=== PATIENT | male | born 1975 | race African-American/Black ===

== ENCOUNTER 2019-04-24 14:03 | Emergency (ER) | payer MEDICARE ==
[~2019-04-24] VITALS: Ht 175.3 cm; Wt 82.1 kg
[2019-04-24 14:32] VITALS: BP 153/93
== END 2019-04-24 15:22 | disposition home or self-care (01) ==
LOC: ER 14:03
DX: F25.9 Schizoaffective disorder, unspecified (principal); Z76.0 Encounter for issue of repeat prescription

== ENCOUNTER 2021-12-18 20:06 | Emergency (ER) | payer MEDICARE, OTHER ==
[~2021-12-18] VITALS: Ht 175.3 cm; Wt 81.6 kg
[2021-12-18 23:03] VITALS: BP 140/74
== END 2021-12-18 23:17 | disposition home or self-care (01) ==
LOC: ER 20:26
DX: R05.9 Cough, unspecified (principal); R52 Pain, unspecified; R06.7 Sneezing; Z20.822 Contact with and (suspected) exposure to COVID-19; F25.9 Schizoaffective disorder, unspecified
CPT/HCPCS: 71045; 87426; 99284; C9803

== ENCOUNTER 2022-07-10 01:53 | Inpatient (IN) | payer OTHER ==
[~2022-07-10] VITALS: Ht 172.7 cm; Wt 73.9 kg
--- NOTE | 2022-07-10 02:35 | NUR ---
JOSE MANUEL FROM HOME C/O VOMITING STARTED THIS MORNING WITH ABD PAIN. PT A/OX4. TOLERATING R/A WELL WITH NO RESP DISTRESS. CONNECTED PT TO POX AND MONITOR. SAFETY MEASURES IN PLACE.
--- NOTE | 2022-07-10 02:44 | NUR ---
DR. DEIDRE ORTEZ AT PT'S BEDSIDE FOR EVAL
[2022-07-10] MEDS ORDERED: DICYCLOMINE HCL INJ 20 MG/2 ML AMPUL IM ONE ×2 (02:50→03:00)
[2022-07-10] MEDS ORDERED: ONDANSETRON HCL/PF 4 MG/2 ML VIAL ONE (02:51)
[2022-07-10] MEDS ORDERED: LORAZEPAM INJ 2 MG/ML VIAL ONE ×2 (02:56→07:26)
--- NOTE | 2022-07-10 02:59 | NUR ---
IV LINE ESTABLISHED, RFA20G. BLOOD COLLECTED AND SENT TO LAB
[2022-07-10] MEDS ORDERED: LORAZEPAM INJ 2 MG/ML VIAL IV ONE (03:00)
[2022-07-10] MEDS ORDERED: IV NS 0.9% 1,000 ML BAG IV ONE (03:00)
[2022-07-10] MEDS ORDERED: ONDANSETRON HCL/PF 4 MG/2 ML VIAL IVP ONE (03:00)
--- NOTE | 2022-07-10 03:10 | NUR ---
PT NOT ABLE TO URINATE AT THIS TIME. OFFERED PT URINAL & WILL F/U WITH URINE SAMPLE.
[2022-07-10 03:12] LABS: BASOPHILS % (AUTO) 0.1 % (0.0-2.0); EOSINOPHILS % (AUTO) 0.1 % (0.0-6.0); HEMATOCRIT 53 % (39-51); HEMOGLOBIN 17.7 g/dL (13.5-17.5); LYMPHOCYTES # (AUTO) 0.6 K/uL (0.8-4.8); LYMPHOCYTES % (AUTO) 3.5 % (20.0-44.0); MEAN CORPUSCULAR HGB CONC 34 g/dl (31.0-36.0); MEAN CORPUSCULAR VOLUME 88 fL (80-96); MONOCYTES # (AUTO) 0.7 K/uL (0.1-1.30); MONOCYTES % (AUTO) 4.1 % (2.0-12.0); NEUTROPHILS # (AUTO) 15.1 K/uL (1.8-8.9); NEUTROPHILS % (AUTO) 92.2 % (43.0-81.0); PLATELET COUNT (AUTO) 265 K/uL (150-450); RED BLOOD CELL COUNT(AUTO) 5.99 MIL/uL (4.5-6.0); WHITE BLOOD COUNT (AUTO) 16.4 K/uL (4.3-11.0)
[2022-07-10 03:26] LABS: CALCIUM, SERUM 9.5 mg/dL (8.5-10.1); POTASSIUM 3.7 mmol/L (3.5-5.1)
--- NOTE | 2022-07-10 03:26 | NUR ---
COVID ANTIGEN SWAB COLLECTED AND SENT TO LAB
--- NOTE | 2022-07-10 03:31 | NUR ---
PT TAKEN TO CT VIA YISSEL
[2022-07-10 03:32] LABS: ALBUMIN 4.4 g/dL (3.4-5.0); BILIRUBIN,DIRECT 0.1 mg/dL (0.0-0.2); BILIRUBIN,TOTAL 0.5 mg/dL (0.2-1.0); TOTAL PROTEIN, SERUM 8.9 g/dL (6.4-8.2)
[2022-07-10] MEDS ORDERED: LIDOCAINE 2% JEL UROJET 10 ML MM ONE (04:11)
--- NOTE | 2022-07-10 04:19 | NUR ---
URINE COLLECTED AND SENT TO LAB
[2022-07-10] MEDS ORDERED: MORPHINE SULFATE INJ 4 MG/ML DISP.SYRIN ONE (04:34)
--- NOTE | 2022-07-10 04:55 | NUR ---
DR. JIANG DO ON PHONECALL WITH DR. FOWLER RADIOLOGIST MD
[2022-07-10 04:59] LABS: BILIRUBIN,URINE NEGATIVE (NEGATIVE); COLOR,URINE YELLOW (YELLOW); LEUKOCYTE ESTERASE ,URINE NEGATIVE (NEGATIVE); NITRITE, URINE NEGATIVE (NEGATIVE); PH,URINE 7.5 (5.0-8.0); PROTEIN,URINE 30 mg/dl (NEGATIVE); UGLUCOSE NEGATIVE (NEGATIVE); UROBILINOGEN,URINE 0.2 EU/dL (0.2)
[2022-07-10] MEDS ORDERED: LIDOCAINE VISCOUS 2% UD 15 ML UDC ONE (04:59)
[2022-07-10] MEDS ORDERED: MORPHINE SULFATE INJ 2 MG/ML DISP.SYRIN IV ONE ×2 (05:00→20:00)
--- NOTE | 2022-07-10 05:10 | NUR ---
DR JIANG ON THE PHONE WITH DR SHAH, GEN SURG
--- NOTE | 2022-07-10 05:15 | NUR ---
NGT 14 INSERTED TO R NARE AT 60CM. CONFIRMED PLACEMENT VIA AUSCULTATION AND ASPIRATION. CLEAR GI CONTENT NOTED.
--- NOTE | 2022-07-10 05:22 | NUR ---
MATERIAL CLERK FOR NGT PLACEMENT AND PT'S BEDSIDE
[2022-07-10] MEDS ORDERED: IV NS 0.9% 1,000 ML IV PRN (05:30)
[2022-07-10] MEDS ORDERED: Z GUARD REMEDY 4 OZ OINT TP PRN (05:30)
--- NOTE | 2022-07-10 05:38 | NUR ---
BED ASSIGNMENT: 116-2 AFTER SHIFT CHANGE
[2022-07-10] MEDS ORDERED: LITH300T PO (06:03)
[2022-07-10] MEDS ORDERED: QUET400T PO (06:03)
[2022-07-10] MEDS ORDERED: AMLO-213 PO (06:03)
--- NOTE | 2022-07-10 06:16 | NUR ---
R NARE NGT CONNECTED TO LOW INTERMITTENT SUCTION. PT TOLERATING WELL.
[2022-07-10] MEDS: LORAZEPAM INJ 2 MG/ML VIAL IV PRN ×4 (07:31→18:47)
--- NOTE | 2022-07-10 07:35 | NUR ---
ativan order given iv, waste with rn supervisor evaporator valerie 1mg given 1 mg wasted, tolerated well iv is patent flushing intact RFA
--- NOTE | 2022-07-10 07:42 | NUR ---
REPORT GIVEN TO [facility] ROOM 116-2, ATIVAN EFFECTIVE, STILL C/O N/V AT THIS TIME, SITTING UP 90% ANGLE FOR COMFORT
[2022-07-10] MEDS: ONDANSETRON HCL/PF 4 MG/2 ML VIAL IVP PRN ×3 (08:51→18:47)
[2022-07-10] MEDS: MORPHINE SULFATE INJ 4 MG/ML DISP.SYRIN IV PRN ×3 (08:51→17:32)
--- NOTE | 2022-07-10 09:30 | NUR ---
RN NOTE RIGHT NARE NGT CONNECTED TO LOW INTERMITTENT SUCTION. PATIENT TOLERATING WELL.
[2022-07-10 11:00] LABS: HEMATOCRIT 54 % (39-51); LYMPHOCYTES # (AUTO) 0.6 K/uL (0.8-4.8); LYMPHOCYTES % (AUTO) 2.7 % (20.0-44.0); MEAN CORPUSCULAR HGB CONC 33 g/dl (31.0-36.0); MEAN CORPUSCULAR VOLUME 88 fL (80-96); MONOCYTES # (AUTO) 1.9 K/uL (0.1-1.30); MONOCYTES % (AUTO) 8.5 % (2.0-12.0); NEUTROPHILS # (AUTO) 20.1 K/uL (1.8-8.9); NEUTROPHILS % (AUTO) 88.8 % (43.0-81.0); PLATELET COUNT (AUTO) 286 K/uL (150-450); RED BLOOD CELL COUNT(AUTO) 6.14 MIL/uL (4.5-6.0); WHITE BLOOD COUNT (AUTO) 22.7 K/uL (4.3-11.0)
[2022-07-10] MEDS: LITHIUM CARBONATE (300 MG CAP) 300 MG CAPSULE PO SCH (17:00)
[2022-07-10] MEDS: NICOTINE PATCH (14MG) 14 MG PATCH.TD24 TD SCH (17:32)
--- NOTE | 2022-07-10 17:37 | NUR ---
patient signed consent ,[facility] surgery notified will schedule for paulypt. aware.primary rn aware.continue npo.
[2022-07-10] MEDS ORDERED: LIDOCAINE 1% INJ 50 ML MDV IJ ONE (19:52)
[2022-07-10] MEDS ORDERED: BUPIVACAINE MPF 0.5% W/EPI INJ 30 ML VIAL ONE (19:52)
--- NOTE | 2022-07-10 20:00 | NUR ---
RN NOTE PATIENT TAKEN TO SURGERY ON 2ND FLOOR, CHART, CHECK LIST AND CONSENTS GIVEN TO RN. PATIENT'S VSS AT TIME OF TRANSPORT.
[2022-07-10] MEDS ORDERED: FENTANYL PF 250MCG/5ML AMPUL ONE (20:13)
[2022-07-10] MEDS ORDERED: MIDAZOLAM HCL 2 MG/2ML VIAL ONE (20:14)
[2022-07-10] MEDS ORDERED: HYDROMORPHONE INJ 2 MG/ML DISP.SYRIN ONE (20:14)
[2022-07-10] MEDS ORDERED: ROCURONIUM BROMIDE 50 MG/5 ML ONE (20:15)
[2022-07-10] MEDS ORDERED: FAMOTIDINE/PF INJ 20 MG/2 ML VIAL IV ONE (20:15)
[2022-07-10] MEDS ORDERED: SEVOFLURANE 250 ML BOTTLE IH ONE (21:45)
[2022-07-10] MEDS: QUETIAPINE FUMARATE 100 MG TABLET PO SCH (22:00)
[2022-07-11] MEDS ORDERED: MIDAZOLAM HCL 2 MG/2ML VIAL ONE ×2 (00:07→00:12)
--- NOTE | 2022-07-11 00:30 | NUR ---
0030 Patient back from surgery via bed, report given by OR nurse to ELMER Thomas at bedside. Patient very drowsy, opens eyes briefly and immediately tries to get out of bed. Received with bilateral soft wrist restraints from OR for safety as per report patient was also trying to get out of bed during recovery. Leon catheter intact and patent with moderate amount of baron urine. Incision sites on abdomen noted with small amount of bleeding, steri strips intact. NGT in place and connected to low intermittent suction. Vital signs checked and recorded. Repositioned for comfort. Call light placed within reach. Restraints order obtained from WILBERT [place]. Will cont. to monitor patient.
[2022-07-11] MEDS: ONDANSETRON HCL/PF 4 MG/2 ML VIAL IVP PRN ×3 (02:03→15:06)
[2022-07-11] MEDS: MORPHINE SULFATE INJ 4 MG/ML DISP.SYRIN IV PRN ×5 (02:03→22:35)
[2022-07-11] MEDS: LORAZEPAM INJ 2 MG/ML VIAL IV PRN ×4 (02:03→21:48)
[2022-07-11 06:42] LABS: BASOPHILS # (AUTO) 0.1 K/uL (0.0-0.2); BASOPHILS % (AUTO) 0.4 % (0.0-2.0); EOSINOPHILS % (AUTO) 0.2 % (0.0-6.0); HEMATOCRIT 49 % (39-51); HEMOGLOBIN 16.2 g/dL (13.5-17.5); LYMPHOCYTES # (AUTO) 0.3 K/uL (0.8-4.8); LYMPHOCYTES % (AUTO) 2.2 % (20.0-44.0); MEAN CORPUSCULAR HGB CONC 33 g/dl (31.0-36.0); MEAN CORPUSCULAR VOLUME 90 fL (80-96); MONOCYTES # (AUTO) 0.7 K/uL (0.1-1.30); MONOCYTES % (AUTO) 5.1 % (2.0-12.0); NEUTROPHILS # (AUTO) 13.2 K/uL (1.8-8.9); NEUTROPHILS % (AUTO) 92.1 % (43.0-81.0); PLATELET COUNT (AUTO) 216 K/uL (150-450); RED BLOOD CELL COUNT(AUTO) 5.43 MIL/uL (4.5-6.0); WHITE BLOOD COUNT (AUTO) 14.3 K/uL (4.3-11.0)
--- NOTE | 2022-07-11 06:59 | NUR ---
all care endorsed to day shift nurse, patient stable.
--- NOTE | 2022-07-11 07:01 | NUR ---
all care endorsed to day shift nurse, patient stable.
[2022-07-11 07:12] LABS: CALCIUM, SERUM 7.6 mg/dL (8.5-10.1); CREATININE 1.5 mg/dL (0.6-1.3); PHOSPHORUS 3.2 mg/dL (2.5-4.9); POTASSIUM 3.8 mmol/L (3.5-5.1)
--- NOTE | 2022-07-11 07:30 | NUR ---
RN OPENING NOTES RECEIVED PT A0X4. ON RA AT 100%. PT ON TELE MONITOR SR. PT S/P SURGERY LAST NIGHT FOR SMALL BOWEL OBSTRUCTION. PT REMAINS ON NPO STATUS, WAITING ON CLEARANCE FROM SURGEON. PT HAS REEVES CATHETER INTACT, DRAINING WELL VIA GRAVITY. STERI STRIPS ON LEFT ABDOMEN INTACT, NO BLEEDING NOTED. NGT CONNECTED TO LOW INTERMITTENT SUCTION ON R NARES. IV ACCESS ON RFA #20 RUNNING AT 75 MLS/HR, FLUSHED AND PATENT, NO INFILTRATION NOTED. ALL SAFETY MEASURES IN PLACE. BED IN LOWEST POSITION, LOCKED AND BED ALARM ACTIVATED. WILL CONTINUE MONITOR THROUGHOUT SHIFT.
[2022-07-11 08:00] VITALS: BP 140/53
[2022-07-11] MEDS: LITHIUM CARBONATE (300 MG CAP) 300 MG CAPSULE PO SCH ×2 (08:13→17:00)
[2022-07-11] MEDS: NICOTINE PATCH (14MG) 14 MG PATCH.TD24 TD SCH (08:13)
[2022-07-11] MEDS: AMLODIPINE BESYLATE 10 MG TABLET PO SCH (08:15)
--- NOTE | 2022-07-11 11:16 | NUR ---
RN NOTE NOTIFIED DR RODARTE OF RECENT LAB RESULTS. WITH ORDER TO INCREASE NS IVF TO 125 MLS/HR. ORDERS CARRIED OUT.
[2022-07-11 16:00] VITALS: BP 155/108
[2022-07-11] MEDS: IV NS 0.9% 1,000 ML IV PRN (16:37)
--- NOTE | 2022-07-11 18:15 | NUR ---
RN NOTE PATIENT SEEN BY CHANDRAKANT COMBS EDUCATIONAL THERAPIST, S/P SMALL BOWEL OBSTRUCTION SURGERY. PER CHANDRAKANT OK TO ADVANCE DIET TO CLEAR LIQUID DIET. NOTED AND CARRIED OUT.
--- NOTE | 2022-07-11 18:58 | NUR ---
RN CLOSING NOTES NO SIGNIFICANT CHANGES ON PATIENT CONDITION THROUGHOUT SHIFT. PATIENT AWAKE, ALERT/ORIENTED X 3-4 WITH GIRLFRIEND AT BEDSIDE. ON RA AT 100%. BREATHING UNLABORED. NO SOB OR ANY ACUTE DISTRESS NOTED. PT S/P SURGERY LAST NIGHT FOR SMALL BOWEL OBSTRUCTION, DIET NOW ON CLEAR LIQUIDS. PT HAS REEVES CATHETER INTACT, DRAINING WELL VIA GRAVITY. NGT ON R NARES, CURRENTLY CLAMPED. IV ACCESS ON RFA #20 INFUSING NS AT 125 MLS/HR, FLUSHED AND PATENT, NO INFILTRATION NOTED. ALL NEEDS ANTICIPATED. KEPT PATIENT CLEAN DRY AND COMFORTABLE. ALL SAFETY MEASURES IN PLACE. BED IN LOWEST POSITION, LOCKED AND BED ALARM ACTIVATED. WILL ENDORSE TO CHARTING CLERK NURSE FOR CONTINUITY OF CARE.
--- NOTE | 2022-07-11 19:40 | NUR ---
PT RECEIVED A0X4. ON RA, OS SAT AT 98%. PT ON TELE MONITOR SR. PT S/P SURGERY LAST NIGHT FOR SMALL BOWEL OBSTRUCTION. PT REMAINS ON CLEAR LIQUID DIET, PT HAS REEVES CATHETER INTACT, DRAINING WELL VIA GRAVITY. STERI STRIPS ON LEFT ABDOMEN INTACT, NO BLEEDING NOTED. NGT CONNECTED TO LOW INTERMITTENT SUCTION ON R NARES, CURRENTLY CLAMPED TOLERATED. IV ACCESS ON RFA #20 PATENT AND INFUSING NS AT 125 ML/HR, NO INFILTRATION NOTED. ALL SAFETY MEASURES IN PLACE. BED IN LOWEST POSITION, LOCKED AND BED ALARM ACTIVATED. WILL CONTINUE PLAN OF CARE.
[2022-07-11] MEDS: QUETIAPINE FUMARATE 100 MG TABLET PO SCH (21:02)
[2022-07-11] MEDS ORDERED: IV NS 0.9% 500 ML IV ONE (22:30)
[2022-07-11] MEDS ORDERED: ACETAMINOPHEN 650 MG/20.3 ML UDC PO PRN (22:30)
[2022-07-12] VITALS: BP 119/60
--- NOTE | 2022-07-12 00:06 | NUR ---
PT HR [id number] ON TELE MONITOR ON 07/11 AT 10PM. RELAYED TO MD. PRN MEDS GIVEN ORDERED. 500ML NS BOLUS GIVEN ORDERED. CLAMPED NGT PULLED OUT BY PT. RESTRAINTS IN PLACE ORDERED. PT TOLERATING CLEAR LIQUID DIET. NO ORDER FOR NGT REINSERTION AT THIS TIME. WILL CONTINUE PLAN OF CARE AND ANTICIPATE PT NEEDS.
[2022-07-12] MEDS: IV NS 0.9% 1,000 ML IV PRN ×3 (02:21→22:35)
[2022-07-12] MEDS: MORPHINE SULFATE INJ 4 MG/ML DISP.SYRIN IV PRN ×4 (04:15→18:23)
[2022-07-12] MEDS: LORAZEPAM INJ 2 MG/ML VIAL IV PRN (04:44)
[2022-07-12 06:20] LABS: BASOPHILS % (AUTO) 0.3 % (0.0-2.0); EOSINOPHILS % (AUTO) 0.4 % (0.0-6.0); HEMATOCRIT 45 % (39-51); HEMOGLOBIN 14.5 g/dL (13.5-17.5); LYMPHOCYTES # (AUTO) 0.7 K/uL (0.8-4.8); LYMPHOCYTES % (AUTO) 8.5 % (20.0-44.0); MEAN CORPUSCULAR HGB CONC 33 g/dl (31.0-36.0); MEAN CORPUSCULAR VOLUME 91 fL (80-96); MONOCYTES # (AUTO) 0.9 K/uL (0.1-1.30); MONOCYTES % (AUTO) 11.1 % (2.0-12.0); NEUTROPHILS # (AUTO) 6.6 K/uL (1.8-8.9); NEUTROPHILS % (AUTO) 79.7 % (43.0-81.0); PLATELET COUNT (AUTO) 162 K/uL (150-450); RED BLOOD CELL COUNT(AUTO) 4.92 MIL/uL (4.5-6.0); WHITE BLOOD COUNT (AUTO) 8.3 K/uL (4.3-11.0)
--- NOTE | 2022-07-12 06:42 | NUR ---
PT ASLEEP, AWAKE INTERMITTENTLY, A0X4. ON NC @ 2LPM. O2 SAT AT 100%. PT ON TELE MONITOR SR-ST. PT S/P SURGERY SMALL BOWEL OBSTRUCTION. PT REMAINS ON CLEAR LIQUID DIET, PRN MEDS GIVEN NEEDED. PT HAS REEVES CATHETER INTACT, DRAINING WELL VIA GRAVITY. STERI STRIPS ON LEFT ABDOMEN INTACT, NO BLEEDING NOTED. IV ACCESS ON RFA #20 PATENT AND INFUSING NS AT 125 ML/HR, NO INFILTRATION NOTED. ALL SAFETY MEASURES IN PLACE. BED IN LOWEST POSITION, LOCKED AND BED ALARM ACTIVATED. WILL ENDORSE TO NEXT NURSE ON DUTY FOR CONTINUITY OF CARE.
[2022-07-12 06:50] LABS: CALCIUM, SERUM 7.9 mg/dL (8.5-10.1); MAGNESIUM 2.5 mg/dL (1.8-2.4); PHOSPHORUS 1.7 mg/dL (2.5-4.9); POTASSIUM 3.6 mmol/L (3.5-5.1)
--- NOTE | 2022-07-12 07:42 | NUR ---
RN NOTE PT RECEIVED AWAKE IN BED, VERBALLY RESPONSIVE. ON O2 VIA NC @ 2L. TOLERATING WELL PT NOT IN DISTRESS. IV ACCESS ON RFA G 20 WITH IVF NS @125ML/HR. ON CLEAR LIQUID DIET. SAFETY MEASURES MAINTAINED.
[2022-07-12 08:00] VITALS: BP 141/60
[2022-07-12] MEDS: AMLODIPINE BESYLATE 10 MG TABLET PO SCH (08:05)
[2022-07-12] MEDS: LITHIUM CARBONATE (300 MG CAP) 300 MG CAPSULE PO SCH ×2 (08:25→16:50)
--- NOTE | 2022-07-12 10:04 | NUR ---
RN NOTE PT COMPLAINED OF CHEST PAIN AND SOB. PT WITH BP 149/108 hr-122 sinus tachy reading in monitor. stat ekg ordered and troponin. pmd made aware. will cont to monitor. prn morphine given.
[2022-07-12] MEDS: NICOTINE PATCH (14MG) 14 MG PATCH.TD24 TD SCH (10:47)
[2022-07-12] MEDS ORDERED: NEUTRA PHOS 1 POWD.PACKET PO ONE (11:00)
[2022-07-12] MEDS: hydrALAZINE HCL IV 20 MG VIAL IV PRN ×2 (11:30→16:51)
--- NOTE | 2022-07-12 15:30 | NUR ---
ms rn note per pat dnp surgery ok to insert n gtube to low intermitted suction ,aware katey vuonglt
[2022-07-12 16:00] VITALS: BP 160/119
[2022-07-12] MEDS ORDERED: LIDOCAINE HCL/PF 1% 30 ML SDV IJ ONE (17:30)
[2022-07-12] MEDS ORDERED: CLONIDINE HCL 0.1 MG TABLET PO ONE (18:30)
--- NOTE | 2022-07-12 19:14 | NUR ---
RN NOTE PT RECEIVED AWAKE IN BED, VERBALLY RESPONSIVE. ON O2 VIA NC @ 2L. TOLERATING WELL PT NOT IN DISTRESS. IV ACCESS ON LFA G22 WITH IVF NS @125ML/HR. NGT REINSERTED THIS SHIFT WITH GASTRIC OUTPUT OF LIGHT DARK LIQUID WITH 300CC. PMD MADE AWARE. PT ON NPO STATUS. SAFETY MEASURES MAINTAINED. DUE MEDICATIONS GIVEN, AM PM CARE DONE. 1 DOSE OF CLONIDINE 0.1 GIVEN. WILL ENDORSE ACCORDINGLY
--- NOTE | 2022-07-12 19:30 | NUR ---
RN OPENING NOTE PT RECEIVED AWAKE IN BED, VERBALLY RESPONSIVE. ON O2 VIA NC @ 2L. TOLERATING WELL PT NOT IN DISTRESS. IV ACCESS ON LFA 22g WITH IVF NS @125ML/HR. NGT TUBE ON LOW SUCTION WITH GASTRIC OUTPUT OF LIGHT DARK LIQUID WITH 300ML. PT ON NPO STATUS.ALL SAFETY MEASURES IN PLACE, BED LOCKED IN LOWEST POSITION WITH SIDERAILS UP X 2, CALL LIGHT WITHIN REACH. BED ALARM ON. WILL CONTINUE TO MONITOR AND REASSESS PATIENT FOR ANY CHANGES DURING SHIFT.
[2022-07-12 20:00] VITALS: BP 162/118
--- NOTE | 2022-07-12 21:09 | NUR ---
RN NOTE BP WENT DOWN TO 145/112 AT THE TIME HYDRALAZINE WAS ABLE TO BE GIVEN AGAIN. HYDRALAZINE NOT GIVEN DUE TO ORDER PARAMETERS
[2022-07-12] MEDS: QUETIAPINE FUMARATE 100 MG TABLET PO SCH (21:36)
[2022-07-13] MEDS: MORPHINE SULFATE INJ 4 MG/ML DISP.SYRIN IV PRN ×4 (01:40→20:54)
[2022-07-13 04:00] VITALS: BP 163/111
[2022-07-13] MEDS: hydrALAZINE HCL IV 20 MG VIAL IV PRN ×3 (04:25→18:34)
--- NOTE | 2022-07-13 04:25 | NUR ---
RN NOTE BP WAS 163/111 HYDRALAZINE WAS GIVEN DUE TO ORDER PARAMETERS
[2022-07-13] MEDS: IV NS 0.9% 1,000 ML IV PRN ×2 (05:56→13:03)
[2022-07-13 06:32] LABS: BASOPHILS % (AUTO) 0.1 % (0.0-2.0); EOSINOPHILS % (AUTO) 0.4 % (0.0-6.0); HEMATOCRIT 46 % (39-51); HEMOGLOBIN 15.1 g/dL (13.5-17.5); LYMPHOCYTES # (AUTO) 0.6 K/uL (0.8-4.8); LYMPHOCYTES % (AUTO) 4.8 % (20.0-44.0); MEAN CORPUSCULAR HGB CONC 33 g/dl (31.0-36.0); MEAN CORPUSCULAR VOLUME 90 fL (80-96); MONOCYTES # (AUTO) 1.3 K/uL (0.1-1.30); MONOCYTES % (AUTO) 9.5 % (2.0-12.0); NEUTROPHILS # (AUTO) 11.2 K/uL (1.8-8.9); NEUTROPHILS % (AUTO) 85.2 % (43.0-81.0); PLATELET COUNT (AUTO) 177 K/uL (150-450); RED BLOOD CELL COUNT(AUTO) 5.12 MIL/uL (4.5-6.0); WHITE BLOOD COUNT (AUTO) 13.1 K/uL (4.3-11.0)
[2022-07-13 06:57] LABS: CALCIUM, SERUM 8.4 mg/dL (8.5-10.1); CREATININE 0.7 mg/dL (0.6-1.3); MAGNESIUM 2.1 mg/dL (1.8-2.4); PHOSPHORUS 1.7 mg/dL (2.5-4.9); POTASSIUM 3.6 mmol/L (3.5-5.1)
--- NOTE | 2022-07-13 07:10 | NUR ---
RN CLOSING NOTE PT RECEIVED AWAKE IN BED, VERBALLY RESPONSIVE. ON O2 VIA NC @ 2L. TOLERATING WELL PT NOT IN DISTRESS. IV ACCESS ON LFA 22g WITH IVF NS @125ML/HR. NGT TUBE ON LOW SUCTION WITH GASTRIC OUTPUT OF LIGHT DARK LIQUID WITH 450ML. PT ON NPO STATUS.ALL SAFETY MEASURES IN PLACE, BED LOCKED IN LOWEST POSITION WITH SIDERAILS UP X 2, CALL LIGHT WITHIN REACH. BED ALARM ON. WILL ENDORSE TO MORNING FOR CONTINUE OF CARE.
--- NOTE | 2022-07-13 07:49 | NUR ---
RN OPENING NOTE PATIENT AWAKE IN BED RESTING. A/O X 4. NO PAIN NOTED AT THIS TIME. ON 2L OXYGEN VIA NC, NO DISTRESS OR SHORTNESS OF BREATH NOTED. IV ACCESS LAC #22G, INTACT, PATENT AND FLUSHING WELL. FALL AND SAFETY MEASURES IN PLACE, BED ALARM ON, BED IN LOW AND LOCK POSITION, CALL LIGHT AND TABLE WITHIN EASY REACH, SIDE RAILS UP X2. WILL CONTINUE TO MONITOR.
[2022-07-13 08:00] VITALS: BP 164/113
[2022-07-13] MEDS: AMLODIPINE BESYLATE 10 MG TABLET PO SCH (09:00)
[2022-07-13] MEDS: LITHIUM CARBONATE (300 MG CAP) 300 MG CAPSULE PO SCH ×2 (09:00→16:10)
[2022-07-13] MEDS ORDERED: LISINOPRIL (20MG) 20 MG TABLET PO SCH (09:00)
[2022-07-13] MEDS: NICOTINE PATCH (14MG) 14 MG PATCH.TD24 TD SCH (09:43)
[2022-07-13 12:00] VITALS: BP 163/113
[2022-07-13] MEDS ORDERED: Sodium Phosphate 15 MMOL in IV NS 0.9% 245 ML IV SCH (12:00)
[2022-07-13] MEDS: ONDANSETRON HCL/PF 4 MG/2 ML VIAL IVP PRN (13:38)
[2022-07-13 16:06] VITALS: BP 181/128
--- NOTE | 2022-07-13 19:25 | NUR ---
RN NOTES RECEIVED PT FOR CONTINUITY OF CARE. PATIENT A/OX4 IN NO S/SX OF ACUTE DISTRESS AT THIS TIME; CURRENTLY ON 2L OF O2 VIA NC; WITH 02 SAT >95% AT THIS TIME. WITH IV ACCESS ON R FA#20 PATENT, INTACT AND FLUSHING WELL. WITH RUNNING NS@125MLS/HR. WITH NGT ON THE R NARE CONNECTED TO LIS DRAINING DARK OUTPUT SMALL AMOUNT AT THIS TIME. CURRENTLY ON NPO. WILL ENSURE SAFETY MEASURES WITHIN THE SHIFT. PATIENT BED ALARM IS ON. HEAD OF BED ELEVATED. BED IS LOCKED, IN LOWEST POSITION AND SIDE RAILS UP. CALL LIGHT WITHIN REACH OF THE PATIENT. WILL CONTINUE TO MONITOR AND REASSESS FOR ANY CHANGES AND WILL CARRY OUT ANY ONGOING AND ACTIVE MD ORDER. Addendum: 07/13/22 at 2256 by KATHY TAPIA RN CORRECTION IV ACCESS ON L AC#22
--- NOTE | 2022-07-13 19:32 | NUR ---
RN CLOSING NOTE PATIENT AWAKE IN BED RESTING. A/O X 4. NO PAIN NOTED AT THIS TIME. ON 3L OXYGEN VIA NC, NO DISTRESS OR SHORTNESS OF BREATH NOTED. IV ACCESS LAC #22G, INTACT, PATENT AND FLUSHING WELL. PATIENT HAVE REEVES CATHETER IN PLACE AND DARNING WELL, OUTPUT 1100 ML. PATIENT BEING HAVING HIGH BP, HYDRALAZINE WAS GIVEN, CHARGE NURSE AWARE. FALL AND SAFETY MEASURES IN PLACE, BED ALARM ON, BED IN LOW AND LOCK POSITION, CALL LIGHT AND TABLE WITHIN EASY REACH, SIDE RAILS UP X2. WILL ENDORSE TO CORRESPONDENCE DICTATOR.
[2022-07-13 20:00] VITALS: BP 166/116
--- NOTE | 2022-07-13 20:48 | NUR ---
RN NOTES COMMUNICATED WITH RODGER MARTE (RAKESH,SECURITY SYSTEM INSTALLER) PROVIDED STATUS UPDATE ABOUT PT AND CLARIFIED DIET OF PT CURRENTLY ON NPO AND WITH ONGOING NG SUCTION. WITH PO MEDS ON SCHEDULE. WAS ADVISED STRICT NPO; NO MEDS FOR NOW. RN ACKNOWLEDGED.
[2022-07-13 21:30] VITALS: BP 158/102
[2022-07-13] MEDS: QUETIAPINE FUMARATE 100 MG TABLET PO SCH (21:37)
[2022-07-13] MEDS: LORAZEPAM INJ 2 MG/ML VIAL IV PRN (22:38)
[2022-07-14 03:25] VITALS: BP 170/114
[2022-07-14] MEDS: hydrALAZINE HCL IV 20 MG VIAL IV PRN ×3 (03:25→20:47)
[2022-07-14 04:00] VITALS: BP 170/114
--- NOTE | 2022-07-14 04:00 | NUR ---
RN NOTES PATIENT REMAINED TO BE IN NO SIGNS OF ACUTE RESPIRATORY DISTRESS , SAFE ENVIRONMENT MAINTAINED FOR PT. AM PATIENT CARE ASSISTANCE RENDERED. WILL CONTINUE TO MONITOR AND REASSESS FOR ANY CHANGES THROUGHOUT THE SHIFT.
[2022-07-14] MEDS: IV NS 0.9% 1,000 ML IV PRN ×2 (05:04→18:38)
--- NOTE | 2022-07-14 06:31 | NUR ---
RN CLOSING NOTE: PATIENT REMAINS IN ROOM IN NO SIGNS OF RESPIRATORY DISTRESS, PATIENT STILL ON 2L OF 02 VIA NC;TOLERATING WELL SATURATING @ >95% SP02. MED SURG STATUS. SAFETY MEASURES IMPLEMENTED, BED IN LOWEST POSITION, LOCKED, SIDE RAILS UP, CALL LIGHT WITHIN REACH. ALL NEEDS AND ORDERS ADDRESSED DURING THE SHIFT. IV ACCESS MAINTAINED INTACT, SECURED AND FLUSHING WELL. IV FLUID RUNNING PER ORDER. ALL DUE MEDS GIVEN ORDERED & SCHEDULED ; PATIENT TOLERATED WELL. PATIENT KEPT CLEAN AND COMFORTABLE WITHIN THE SHIFT. PATIENT ENDORSED TO INCOMING SHIFT RN WITH STABLE VITAL SIGN AND FOR CONTINUITY OF CARE.
[2022-07-14 07:11] LABS: CALCIUM, SERUM 8.4 mg/dL (8.5-10.1); CREATININE 0.6 mg/dL (0.6-1.3); MAGNESIUM 2.3 mg/dL (1.8-2.4); PHOSPHORUS 2.4 mg/dL (2.5-4.9); POTASSIUM 3.7 mmol/L (3.5-5.1)
[2022-07-14 07:17] LABS: BASOPHILS % (AUTO) 0.3 % (0.0-2.0); EOSINOPHILS % (AUTO) 0.4 % (0.0-6.0); HEMATOCRIT 48 % (39-51); HEMOGLOBIN 15.7 g/dL (13.5-17.5); LYMPHOCYTES # (AUTO) 0.7 K/uL (0.8-4.8); LYMPHOCYTES % (AUTO) 4.7 % (20.0-44.0); MEAN CORPUSCULAR HGB CONC 33 g/dl (31.0-36.0); MEAN CORPUSCULAR VOLUME 89 fL (80-96); MONOCYTES # (AUTO) 1.6 K/uL (0.1-1.30); MONOCYTES % (AUTO) 10.6 % (2.0-12.0); NEUTROPHILS # (AUTO) 12.4 K/uL (1.8-8.9); PLATELET COUNT (AUTO) 209 K/uL (150-450); RED BLOOD CELL COUNT(AUTO) 5.38 MIL/uL (4.5-6.0); WHITE BLOOD COUNT (AUTO) 14.8 K/uL (4.3-11.0)
[2022-07-14 08:00] VITALS: BP 182/112
[2022-07-14] MEDS: NICOTINE PATCH (14MG) 14 MG PATCH.TD24 TD SCH (08:00)
[2022-07-14] MEDS: AMLODIPINE BESYLATE 10 MG TABLET PO SCH (08:00)
[2022-07-14] MEDS: LITHIUM CARBONATE (300 MG CAP) 300 MG CAPSULE PO SCH ×2 (08:00→16:19)
[2022-07-14] MEDS: LORAZEPAM INJ 2 MG/ML VIAL IV PRN ×3 (08:44→22:58)
--- NOTE | 2022-07-14 08:47 | NUR ---
RN NOTE BP 182/112. HYDRALAZINE 10MG IV GIVEN.
[2022-07-14] MEDS: ONDANSETRON HCL/PF 4 MG/2 ML VIAL IVP PRN (10:41)
[2022-07-14] MEDS ORDERED: K PHOS NEUTRAL 250 MG TABLET PO ONE (11:30)
[2022-07-14] MEDS: chlorproMAZINE HCL 25 MG TABLET PO SCH ×2 (12:06→16:19)
[2022-07-14 12:36] LABS: BAND % (MANUAL) 2 % (0.0-5.0); LYMPHOCYTES % (MANUAL) 3 % (16-48); MONOCYTES % (MANUAL) 7 % (0-11.0); NEUTROPHILS % (MANUAL) 88 (42-76)
[2022-07-14 16:00] VITALS: BP 162/117
--- NOTE | 2022-07-14 16:20 | NUR ---
RN NOTE PT REPORTING SOME NAUSEA AND ABD DISCOMFORT, REQUESTING TO HOLD PO MEDS THROUGH NGTUBE AT THIS TIME.
--- NOTE | 2022-07-14 19:30 | NUR ---
MS RN OPENING NOTE PT RECEIVED AWAKE IN BED, VERBALLY RESPONSIVE. ON O2 VIA NC @ 2L. TOLERATING WELL PT NOT IN DISTRESS. IV ACCESS ON LFA 22g WITH IVF NS @125ML/HR. NGT TUBE ON LOW SUCTION WITH GASTRIC OUTPUT OF LIGHT DARK LIQUID WITH 300ML. PT ON NPO EXCEPTMEDS STATUS.ALL SAFETY MEASURES IN PLACE, BED LOCKED IN LOWEST POSITION WITH SIDERAILS UP X 2, CALL LIGHT WITHIN REACH. BED ALARM ON. WILL CONTINUE TO MONITOR AND REASSESS PATIENT FOR ANY CHANGES DURING SHIFT.
[2022-07-14 20:00] VITALS: BP 164/107
[2022-07-14] MEDS: QUETIAPINE FUMARATE 100 MG TABLET PO SCH (22:00)
--- NOTE | 2022-07-14 22:16 | NUR ---
RN NOTE PER DR. CAMERON HOLD SEROQUEL UNTIL NG TUBE SUCTION IS DONE, IF PATIENT GETS AGITATED USE ATIVAN IV.
--- NOTE | 2022-07-14 23:41 | NUR ---
RN NOTE SPOKE WITH MAURICE THE GIRLFRIEND AND ADVISED OF THE PLAN FOR CT SCAN.
[2022-07-15 04:00] VITALS: BP 175/103
[2022-07-15] MEDS: hydrALAZINE HCL IV 20 MG VIAL IV PRN ×2 (05:08→21:44)
--- NOTE | 2022-07-15 06:48 | NUR ---
MS RN CLOSING NOTE PT ASLEEP IN BED, VERBALLY RESPONSIVE. ON O2 VIA NC @ 2L. TOLERATING WELL PT NOT IN DISTRESS. IV ACCESS ON LFA 22g WITH IVF NS @125ML/HR. NGT TUBE ON LOW SUCTION WITH GASTRIC OUTPUT OF LIGHT DARK LIQUID WITH 450ML OUTPU .ALL SAFETY MEASURES IN PLACE, BED LOCKED IN LOWEST POSITION WITH SIDERAILS UP X 2, CALL LIGHT WITHIN REACH. BED ALARM ON. WILL ENDORSE TO MORNING SHIFT FOR CONTINUATION OF CARE
--- NOTE | 2022-07-15 07:30 | NUR ---
OPENING NOTE PT RECEIVED AWAKE IN BED, VERBALLY RESPONSIVE. PT NOT IN DISTRESS. IV ACCESS ON LFA 22g WITH IVF NS @125ML/HR. NGT TUBE ON LOW SUCTION WITH GASTRIC OUTPUT OF LIGHT DARK LIQUID WITH 3350 ML. PT ON NPO EXCEPT MEDS. ALL SAFETY MEASURES IN PLACE, BED LOCKED IN LOWEST POSITION WITH SIDERAILS UP X 2, CALL LIGHT WITHIN REACH. BED ALARM ON. WILL CONTINUE TO MONITOR AND REASSESS PATIENT FOR ANY CHANGES DURING THE SHIFT.
[2022-07-15 07:37] LABS: CALCIUM, SERUM 8.4 mg/dL (8.5-10.1); CREATININE 0.7 mg/dL (0.6-1.3); MAGNESIUM 2.4 mg/dL (1.8-2.4); PHOSPHORUS 2.6 mg/dL (2.5-4.9); POTASSIUM 2.9 mmol/L (3.5-5.1)
[2022-07-15 07:55] LABS: BASOPHILS % (AUTO) 0.1 % (0.0-2.0); EOSINOPHILS % (AUTO) 0.4 % (0.0-6.0); HEMATOCRIT 46 % (39-51); HEMOGLOBIN 15.8 g/dL (13.5-17.5); LYMPHOCYTES # (AUTO) 0.7 K/uL (0.8-4.8); MEAN CORPUSCULAR HGB CONC 34 g/dl (31.0-36.0); MEAN CORPUSCULAR VOLUME 87 fL (80-96); MONOCYTES # (AUTO) 1.7 K/uL (0.1-1.30); NEUTROPHILS % (AUTO) 82.5 % (43.0-81.0); PLATELET COUNT (AUTO) 227 K/uL (150-450); RED BLOOD CELL COUNT(AUTO) 5.29 MIL/uL (4.5-6.0); WHITE BLOOD COUNT (AUTO) 14.5 K/uL (4.3-11.0)
[2022-07-15] MEDS ORDERED: DIATR MEGLU/DIATRIZOATE SODIUM 120 ML BOTTLE (GASTROGRAPHIN) ONE (08:58)
[2022-07-15] MEDS: LITHIUM CARBONATE (300 MG CAP) 300 MG CAPSULE PO SCH ×2 (09:10→17:10)
[2022-07-15] MEDS: AMLODIPINE BESYLATE 10 MG TABLET PO SCH (09:11)
[2022-07-15] MEDS: chlorproMAZINE HCL 25 MG TABLET PO SCH ×3 (09:11→17:10)
[2022-07-15] MEDS: NICOTINE PATCH (14MG) 14 MG PATCH.TD24 TD SCH (09:12)
[2022-07-15] MEDS: ONDANSETRON HCL/PF 4 MG/2 ML VIAL IVP PRN ×2 (09:12→17:11)
[2022-07-15] MEDS: LORAZEPAM INJ 2 MG/ML VIAL IV PRN ×2 (09:12→17:10)
[2022-07-15] MEDS: MORPHINE SULFATE INJ 4 MG/ML DISP.SYRIN IV PRN ×2 (09:13→17:10)
[2022-07-15 09:58] LABS: BAND % (MANUAL) 8 % (0.0-5.0); LYMPHOCYTES % (MANUAL) 6 % (16-48); MONOCYTES % (MANUAL) 4 % (0-11.0); NEUTROPHILS % (MANUAL) 82 (42-76)
[2022-07-15] MEDS: POTASSIUM CL. PREMIX PERIPHER. 50 ML IV SCH ×5 (10:33→23:34)
[2022-07-15 16:00] VITALS: BP 165/117
--- NOTE | 2022-07-15 18:45 | NUR ---
CLOSING NOTE PT ASLEEP IN BED, VERBALLY RESPONSIVE. ON O2 VIA NC @ 2L. TOLERATING WELL PT NOT IN DISTRESS. IV ACCESS ON LFA 22g WITH IVF NS @125ML/HR. NGT TUBE ON LOW SUCTION WITH GASTRIC OUTPUT OF LIGHT DARK LIQUID WITH 550 ML OUTPU .ALL SAFETY MEASURES IN PLACE, BED LOCKED IN LOWEST POSITION WITH SIDERAILS UP X 3, CALL LIGHT WITHIN REACH. BED ALARM ON. WILL ENDORSE TO TIRE AND TUBE REPAIRER FOR CONTINUATION OF CARE
[2022-07-15 20:00] VITALS: BP 175/113
--- NOTE | 2022-07-15 20:00 | NUR ---
MS RN NOTE PT IN BED SLEEPING, AROUSABLE. A/O X 3, NO SOB, NO DISTRESS OR DISCOMFORT NOTED. DENIES PAIN AT THIS TIME. RT NARE NGT INTACT AND PATENT AND ON LIS DRAINING DARK BROWN COLOR FLUIDS. F/C INTACT AND PATENT DRAINING YELLOWISH COLOR URINE VIA GRAVITY. IVF NS INFUSING AT 125 ML/HR, LT HAND @20 G NO S/S OF INFILTRATION NOTED. PT ONLY RECEIVED 2 BAGS OF POTASSIUM WILL INFUSE THE REST ORDERED. HOB ELEVATED. ALL NEEDS ATTENDED. KEPT HIM DRY AND CLEAN. SIDE RAILS UP X 3 AND CALL LIGHT WITHIN REACH. CONTINUE TO MONITOR HIM.
[2022-07-15] MEDS ORDERED: POTASSIUM CL. PREMIX PERIPHER. 0 ML ONE (21:42)
[2022-07-15] MEDS: QUETIAPINE FUMARATE 100 MG TABLET PO SCH (21:43)
[2022-07-16] VITALS: BP 145/98
[2022-07-16] MEDS: POTASSIUM CL. PREMIX PERIPHER. 50 ML IV SCH ×7 (01:09→15:51)
[2022-07-16 04:00] VITALS: BP 115/117
[2022-07-16] MEDS: IV NS 0.9% 1,000 ML IV PRN (06:08)
[2022-07-16 06:18] LABS: BASOPHILS % (AUTO) 0.3 % (0.0-2.0); EOSINOPHILS % (AUTO) 3.9 % (0.0-6.0); HEMATOCRIT 45 % (39-51); HEMOGLOBIN 14.9 g/dL (13.5-17.5); LYMPHOCYTES % (AUTO) 8.2 % (20.0-44.0); MEAN CORPUSCULAR HGB CONC 33 g/dl (31.0-36.0); MEAN CORPUSCULAR VOLUME 89 fL (80-96); MONOCYTES # (AUTO) 1.7 K/uL (0.1-1.30); MONOCYTES % (AUTO) 13.7 % (2.0-12.0); NEUTROPHILS # (AUTO) 9.2 K/uL (1.8-8.9); NEUTROPHILS % (AUTO) 73.9 % (43.0-81.0); PLATELET COUNT (AUTO) 201 K/uL (150-450); RED BLOOD CELL COUNT(AUTO) 5.06 MIL/uL (4.5-6.0); WHITE BLOOD COUNT (AUTO) 12.5 K/uL (4.3-11.0)
[2022-07-16 06:34] LABS: CALCIUM, SERUM 8.3 mg/dL (8.5-10.1); CREATININE 0.7 mg/dL (0.6-1.3); MAGNESIUM 2.2 mg/dL (1.8-2.4); PHOSPHORUS 3.2 mg/dL (2.5-4.9)
--- NOTE | 2022-07-16 06:53 | NUR ---
MS RN NOTE PT IN BED ASLEEP, AROUSABLE. NO DISTRESS OR DISCOMFORT DURING THE SHIFT. NO S/S OF PAIN NOTED. NOTED IV SITE BECOME OCCLUDED, STOPPED THE IV FLUID. WILL ENDORSE TO DAY SHIFT NURSE TO FOLLOW UP AND CONTINUE TO CARE.
[2022-07-16] MEDS: ONDANSETRON HCL/PF 4 MG/2 ML VIAL IVP PRN ×2 (08:57→17:46)
[2022-07-16] MEDS: LORAZEPAM INJ 2 MG/ML VIAL IV PRN ×2 (08:57→17:46)
[2022-07-16] MEDS: MORPHINE SULFATE INJ 4 MG/ML DISP.SYRIN IV PRN ×2 (08:57→17:46)
[2022-07-16] MEDS: NICOTINE PATCH (14MG) 14 MG PATCH.TD24 TD SCH (08:57)
[2022-07-16] MEDS: LITHIUM CARBONATE (300 MG CAP) 300 MG CAPSULE PO SCH ×2 (08:58→17:17)
[2022-07-16] MEDS: AMLODIPINE BESYLATE 10 MG TABLET PO SCH (08:58)
[2022-07-16] MEDS: chlorproMAZINE HCL 25 MG TABLET PO SCH ×3 (08:58→17:17)
[2022-07-16 12:00] VITALS: BP 168/119
[2022-07-16] MEDS ORDERED: MENTHOL/CETYLPYRD (CEPACOL) 1 LOZ LOZENGE PO PRN (13:30)
[2022-07-16] MEDS ORDERED: POTASSIUM CL. PREMIX PERIPHER. 50 ML IV SCH (18:00)
--- NOTE | 2022-07-16 19:05 | NUR ---
RN/NOTE REPORT GIVEN TO LIME MIXER TENDER NURSER ALL CARE ENDORSED AND ALL QUESTIONS ANSWERED, PATIENT STABLE AND ALL SAFETY FALL PRECAUTIONS IN PLACE. PATIENT PROGRESSING WELL THE NG TUBE WAS REMOVED TODAY. THE URINE CATHETER WAS REMOVED TODAY. PATIENT WAS PUT ON CLEAR LIQUID DIET.
[2022-07-16 20:00] VITALS: BP 145/83
[2022-07-16] MEDS: QUETIAPINE FUMARATE 100 MG TABLET PO SCH (22:15)
[2022-07-17] MEDS: IV NS 0.9% 1,000 ML IV PRN (03:07)
[2022-07-17 04:00] VITALS: BP 141/101
[2022-07-17 07:07] LABS: BASOPHILS % (AUTO) 0.2 % (0.0-2.0); CALCIUM, SERUM 8.3 mg/dL (8.5-10.1); CREATININE 0.8 mg/dL (0.6-1.3); EOSINOPHILS % (AUTO) 2.8 % (0.0-6.0); HEMATOCRIT 43 % (39-51); HEMOGLOBIN 14.4 g/dL (13.5-17.5); LYMPHOCYTES # (AUTO) 0.9 K/uL (0.8-4.8); MEAN CORPUSCULAR HGB CONC 34 g/dl (31.0-36.0); MEAN CORPUSCULAR VOLUME 89 fL (80-96); MONOCYTES # (AUTO) 1.5 K/uL (0.1-1.30); MONOCYTES % (AUTO) 14.6 % (2.0-12.0); NEUTROPHILS # (AUTO) 7.7 K/uL (1.8-8.9); NEUTROPHILS % (AUTO) 73.4 % (43.0-81.0); PHOSPHORUS 3.3 mg/dL (2.5-4.9); PLATELET COUNT (AUTO) 233 K/uL (150-450); POTASSIUM 3.2 mmol/L (3.5-5.1); RED BLOOD CELL COUNT(AUTO) 4.79 MIL/uL (4.5-6.0); WHITE BLOOD COUNT (AUTO) 10.5 K/uL (4.3-11.0)
--- NOTE | 2022-07-17 07:25 | NUR ---
MS RN CLOSING NOTE PATIENT AWAKE IN BED, ALERT/ORIENTED X 3, PT ABLE TO MAKE NEEDS KNOWN. PT STABLE ON RA, NO S/S OF DISTRESS OR SOB NOTED, BREATHING EVEN AND UNLABORED. PATIENT SLEPT WELL THROUGH THE NIGHT, NO C/O OF PAIN THROUGHOUT SHIFT. RAC #20G IV ACCESS INTACT AND INFUSING NS @ 125 ML/HR. PATIENT USED URINAL WITH OUTPUT OF 1000 ML. SAFETY MEASURES IN PLACE: CALL LIGHT WITHIN REACH, SIDE RAILS UP X 2, BED LOCKED IN LOWEST POSITION, BED ALARM ON. ENDORSED TO DAYSHIFT NURSE FOR CONTINUITY OF CARE
--- NOTE | 2022-07-17 07:42 | NUR ---
RN OPENING NOTE PT IN BED SLEEPING, AROUSABLE. A/O X 3, NO SOB, NO DISTRESS OR DISCOMFORT NOTED. DENIES PAIN AT THIS TIME. F/C INTACT AND PATENT DRAINING YELLOWISH COLOR URINE VIA GRAVITY. IVF NS INFUSING AT 125 ML/HR, LT HAND @20 G NO S/S OF INFILTRATION NOTED.SAFETY MEASURES IN PLACE.
[2022-07-17 08:00] VITALS: BP 148/106
[2022-07-17] MEDS: LITHIUM CARBONATE (300 MG CAP) 300 MG CAPSULE PO SCH ×2 (08:42→17:24)
[2022-07-17] MEDS: NICOTINE PATCH (14MG) 14 MG PATCH.TD24 TD SCH (08:42)
[2022-07-17] MEDS: chlorproMAZINE HCL 25 MG TABLET PO SCH ×3 (08:42→17:24)
[2022-07-17] MEDS: AMLODIPINE BESYLATE 10 MG TABLET PO SCH (08:42)
[2022-07-17] MEDS: MORPHINE SULFATE INJ 4 MG/ML DISP.SYRIN IV PRN ×2 (11:10→17:28)
[2022-07-17] MEDS: ONDANSETRON HCL/PF 4 MG/2 ML VIAL IVP PRN ×2 (11:11→17:28)
[2022-07-17] MEDS: POTASSIUM CHLORIDE 20 MEQ TAB.PRT.SR PO SCH ×2 (11:11→12:34)
[2022-07-17 16:00] VITALS: BP 170/98
--- NOTE | 2022-07-17 18:47 | NUR ---
RN CLOSING NOTE PATIENT AWAKE IN BED, ALERT/ORIENTED X 3, PT ABLE TO MAKE NEEDS KNOWN. PT STABLE ON RA, NO S/S OF DISTRESS OR SOB NOTED, BREATHING EVEN AND UNLABORED. PATIENT SLEPT WELL THROUGH THE NIGHT, NO C/O OF PAIN THROUGHOUT SHIFT. RAC #20G IV ACCESS INTACT SL. PATIENT USES URINAL AND AMBULATES TO BATHROOM. SAFETY MEASURES IN PLACE: CALL LIGHT WITHIN REACH, SIDE RAILS UP X 2, BED LOCKED IN LOWEST POSITION, BED ALARM ON. ENDORSED TO NIGHT NURSE FOR CONTINUITY OF CARE
--- NOTE | 2022-07-17 19:45 | NUR ---
MS1 RN NOTES RECEIVED ON BED SOUND ASLEEP,AROUSABLE TO VERBAL STIMULI,BREATHING NORMAL,SALINE LOCK RIGHT AC INTACT AND PATENT,IVF DISCONTINUE ON DAYSHIFT,S/P LAPAROSCOPIC LYSIS OF THE ADHESIONS,DRESSING INTACT AND DRY.NO COMPLAINTS OF PAIN AT THE MOMENT,CALL LIGHT IN REACH,NEEDS ANTICIPATED.
--- NOTE | 2022-07-17 22:00 | NUR ---
MS RN NOTES DUE PO MEDS GIVEN,TAKEN WELL.
[2022-07-17] MEDS: QUETIAPINE FUMARATE 100 MG TABLET PO SCH (22:37)
[2022-07-18 04:00] VITALS: BP 115/78
--- NOTE | 2022-07-18 06:51 | NUR ---
MS RN NOTES NO VOICE OF COMPLAINTS THRU OUT SHIFT,MED COMPLIANT,SLEEP WELL WITH SEROQUEL,IN NO ACUTE DISTRESS.
[2022-07-18 07:06] LABS: CALCIUM, SERUM 8.8 mg/dL (8.5-10.1); CREATININE 0.7 mg/dL (0.6-1.3); MAGNESIUM 2.1 mg/dL (1.8-2.4); PHOSPHORUS 3.3 mg/dL (2.5-4.9); POTASSIUM 3.3 mmol/L (3.5-5.1)
[2022-07-18 07:07] LABS: BASOPHILS % (AUTO) 0.1 % (0.0-2.0); EOSINOPHILS % (AUTO) 1.4 % (0.0-6.0); HEMATOCRIT 43 % (39-51); HEMOGLOBIN 14.1 g/dL (13.5-17.5); LYMPHOCYTES # (AUTO) 1.1 K/uL (0.8-4.8); LYMPHOCYTES % (AUTO) 9.4 % (20.0-44.0); MEAN CORPUSCULAR HGB CONC 33 g/dl (31.0-36.0); MEAN CORPUSCULAR VOLUME 90 fL (80-96); MONOCYTES # (AUTO) 1.1 K/uL (0.1-1.30); MONOCYTES % (AUTO) 9.3 % (2.0-12.0); NEUTROPHILS # (AUTO) 9.3 K/uL (1.8-8.9); NEUTROPHILS % (AUTO) 79.8 % (43.0-81.0); PLATELET COUNT (AUTO) 262 K/uL (150-450); RED BLOOD CELL COUNT(AUTO) 4.78 MIL/uL (4.5-6.0); WHITE BLOOD COUNT (AUTO) 11.7 K/uL (4.3-11.0)
--- NOTE | 2022-07-18 07:20 | NUR ---
RN OPENING NOTE RECEIVED PT IN BED A/O X 4, NO SOB, NO DISTRESS OR DISCOMFORT NOTED. ABLE TO MAKE NEEDS KNOWN. BREATHING IN ROOM AIR 98%. DENIES PAIN AT THIS TIME. PT IS AMBULATORY WITH SKIN INTACT. IVF NS INFUSING AT 125 ML/HR, LT HAND @20 G NO S/S OF INFILTRATION NOTED. ALL SAFETY MEASURES IN PLACE BED LOCKED IN LOWEST POSITION, CALL LIGHT WITHIN REACH.
[2022-07-18 08:00] VITALS: BP 135/95
[2022-07-18] MEDS: AMLODIPINE BESYLATE 10 MG TABLET PO SCH (08:44)
[2022-07-18] MEDS: LITHIUM CARBONATE (300 MG CAP) 300 MG CAPSULE PO SCH ×2 (08:44→16:55)
[2022-07-18] MEDS: chlorproMAZINE HCL 25 MG TABLET PO SCH ×3 (08:44→13:01)
[2022-07-18] MEDS: NICOTINE PATCH (14MG) 14 MG PATCH.TD24 TD SCH (08:45)
[2022-07-18] MEDS ORDERED: POTASSIUM CHLORIDE 20 MEQ TAB.PRT.SR PO SCH ×2 (10:00→13:00)
[2022-07-18 16:00] VITALS: BP 126/97
--- NOTE | 2022-07-18 19:34 | NUR ---
RN CLOSING NOTES PT IN BED A/O X 4, ON ROOM AIR WITH 02 SAT OF 95%. NO SOB, NO DISTRESS OR DISCOMFORT NOTED. ABLE TO MAKE NEEDS KNOWN. DENIES PAIN AT THIS TIME. PT IS AMBULATORY WITH SKIN INTACT. RAC #20 G INTACT AND PATENT. NO S/S OF INFILTRATION NOTED. PATIENT TOLERATED SOFT DIET WELL, AND ALL PO MEDS. ALL SAFETY MEASURES IN PLACE BED LOCKED IN LOWEST POSITION, CALL LIGHT WITHIN REACH. WILL ENDORSE TO INVENTORY ANALYST NURSE FOR CONTINUITY OF CARE.
--- NOTE | 2022-07-18 20:00 | NUR ---
MS RN OPENING NOTE PT IN BED SLEEPING, AROUSABLE. A/O X 3,ON R/A SATING 97% NO SOB, NO DISTRESS OR DISCOMFORT NOTED. DENIES PAIN AT THIS TIME. V/S STABLE AFEBRILE WITH RIGHT FOREARM G#20 HL NO S/S OF INFILTRATION NOTED.SAFETY MEASURES IN PLACE. DUE MEDS GIVEN ORDERED. ALL NEEDS ATTENDED TOO. CALL LIGHT WITHIN REACH ,WILL CONTINUE TO MONITOR PTS.
[2022-07-18] MEDS: QUETIAPINE FUMARATE 100 MG TABLET PO SCH (21:47)
[2022-07-19 04:00] VITALS: BP 148/97
--- NOTE | 2022-07-19 06:34 | NUR ---
ms rn closing notes Pts remains in bed awake a/ox4 .v/s stable afebrile no sob no distress noted all needs attended too call light within reach .will endorse to rn day shift for continuity of care.
[2022-07-19 06:39] LABS: BASOPHILS % (AUTO) 0.2 % (0.0-2.0); EOSINOPHILS % (AUTO) 1.7 % (0.0-6.0); HEMATOCRIT 47 % (39-51); HEMOGLOBIN 14.8 g/dL (13.5-17.5); LYMPHOCYTES # (AUTO) 1.1 K/uL (0.8-4.8); LYMPHOCYTES % (AUTO) 8.5 % (20.0-44.0); MEAN CORPUSCULAR HGB CONC 32 g/dl (31.0-36.0); MEAN CORPUSCULAR VOLUME 91 fL (80-96); MONOCYTES % (AUTO) 7.6 % (2.0-12.0); NEUTROPHILS # (AUTO) 10.4 K/uL (1.8-8.9); PLATELET COUNT (AUTO) 291 K/uL (150-450); RED BLOOD CELL COUNT(AUTO) 5.14 MIL/uL (4.5-6.0); WHITE BLOOD COUNT (AUTO) 12.7 K/uL (4.3-11.0)
--- NOTE | 2022-07-19 06:55 | NUR ---
MS RN OPENING NOTE RECEIVED PT IN BED A/O X 4 ,ON R/A SATING 98% NO SOB, NO DISTRESS OR DISCOMFORT NOTED. DENIES PAIN AT THIS TIME. V/S STABLE AFEBRILE WITH LEFT WRIST #22G PATENT WITH NO S/S OF INFILTRATION NOTED.SAFETY MEASURES IN PLACE. CALL LIGHT WITHIN REACH ,WILL CONTINUE TO MONITOR THROUGHOUT SHIFT.
[2022-07-19 06:57] LABS: CALCIUM, SERUM 9.1 mg/dL (8.5-10.1); CREATININE 0.9 mg/dL (0.6-1.3); MAGNESIUM 2.5 mg/dL (1.8-2.4); POTASSIUM 3.3 mmol/L (3.5-5.1)
[2022-07-19] MEDS: LORAZEPAM INJ 2 MG/ML VIAL IV PRN (07:33)
[2022-07-19] MEDS ORDERED: ONDA4TAB5 PO (09:36)
[2022-07-19] MEDS ORDERED: HYDR-4275 PO (09:36)
[2022-07-19 09:38] VITALS: BP 143/93
[2022-07-19] MEDS: chlorproMAZINE HCL 25 MG TABLET PO SCH (09:38)
[2022-07-19] MEDS: NICOTINE PATCH (14MG) 14 MG PATCH.TD24 TD SCH (09:38)
[2022-07-19] MEDS: LITHIUM CARBONATE (300 MG CAP) 300 MG CAPSULE PO SCH (09:38)
[2022-07-19] MEDS ORDERED: LORA-259 PO (09:38)
[2022-07-19] MEDS: AMLODIPINE BESYLATE 10 MG TABLET PO SCH (09:38)
[2022-07-19] MEDS ORDERED: POTASSIUM CHLORIDE 20 MEQ TAB.PRT.SR PO ONE (10:00)
--- NOTE | 2022-07-19 10:04 | NUR ---
AVIONICS SYSTEMS REPAIRER NOTE PT WAS DISCHARGED FOR HOME IN STABLE CONDITION WITH GIRLFRIEND AJAY. IV ACCESS REMOVED, CATHETER TIP INTACT; PRESSURE DRESSING APPLIED, NO SIGNS OF BLEEDING NOTED. EXIT FOLDER PROVIDED ALONG WITH BELONGING ACCOUNTED FOR AND SIGNED. DISCHARGE INSTRUCTIONS BOTH VERBALLY AND IN WRITTEN FORM, VERBALIZED UNDERSTANDING. NO C/O OF PAIN AT THIS TIME.
== END 2022-07-19 10:12 | disposition home health service (06) | DRG 329 ==
LOC: ER 01:53 → MEDSG1 06:57
PROVIDERS: ADMIT Student in an Organized Health Care Education/Training Program
PROC: 0DNU4ZZ Release Omentum, Percutaneous Endoscopic Approach (ICD-10-PCS; principal; 2022-07-10)
PROC: 0DB84ZZ Excision of Small Intestine, Percutaneous Endoscopic Approach (ICD-10-PCS; 2022-07-10)
PROC: 0DQ84ZZ Repair Small Intestine, Percutaneous Endoscopic Approach (ICD-10-PCS; 2022-07-10)
PROC: 0DN84ZZ Release Small Intestine, Percutaneous Endoscopic Approach (ICD-10-PCS; 2022-07-10)
PROC: 0DU Gastrointestinal System, Supplement (ICD-10-PCS; 2022-07-10)
DX: K56.2 Volvulus (principal); N17.0 Acute kidney failure with tubular necrosis; Z20.822 Contact with and (suspected) exposure to COVID-19; K66.0 Peritoneal adhesions (postprocedural) (postinfection); F25.9 Schizoaffective disorder, unspecified; K43.9 Ventral hernia without obstruction or gangrene; Z83.3 Family history of diabetes mellitus; Z82.49 Family history of ischemic heart disease and other diseases of the circulatory system; F17.200 Nicotine dependence, unspecified, uncomplicated; Z79.899 Other long term (current) drug therapy; D72.829 Elevated white blood cell count, unspecified; Z98.890 Other specified postprocedural states; E83.39 Other disorders of phosphorus metabolism; E83.41 Hypermagnesemia; E87.6 Hypokalemia; I10 Essential (primary) hypertension
CPT/HCPCS: 36415; 71045-TC; 74018; 74250-TC; 80048-TC; 80076-TC; 83605-TC; 83690-TC; 83735-TC; 84100-TC; 84484-TC; 85025-TC; 85730-TC; 86850-TC; 87081-TC; 94799-TC; 97116-TC; 97530-TC; A7526; A9563; C1781; C9803; G0378; J0360; J0500; J0690; J1170; J2060; J2250; J2270; J2405; J2704; J2765; J3010; J3480; J3490; J7030; J7050; Q0161; Q4166; Q9963

== ENCOUNTER 2023-01-14 10:52 | Emergency (ER) | payer OTHER ==
[~2023-01-14] VITALS: Ht 172.7 cm; Wt 80.3 kg
[~2023-01-14 10:52] MED LIST: AMLO-213 PO; HYDR-4275 PO; LITH300T PO; LORA-259 PO; ONDA4TAB5 PO; QUET400T PO
--- NOTE | 2023-01-14 10:52 | NUR ---
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 PAIN 8/10 ON PAIN SCALE.
--- NOTE | 2023-01-14 11:25 | NUR ---
SEEN BY DR Zurdo STORY
[2023-01-14] MEDS ORDERED: KETOROLAC TROMETHAMINE INJ 60 MG/2 ML VIAL IM ONE (11:30)
[2023-01-14] MEDS ORDERED: CYCLOBENZAPRINE 10 MG TABLET PO ONE (11:30)
[2023-01-14] MEDS ORDERED: KETOROLAC TROMETHAMINE INJ 30 MG/ML VIAL ONE (11:36)
[2023-01-14] MEDS ORDERED: CYCLOBENZAPRINE 10 MG TABLET ONE (11:36)
--- NOTE | 2023-01-14 11:44 | NUR ---
RESTING AT THIS TIME
[2023-01-14] MEDS ORDERED: CYCL5TAB PO (12:42)
[2023-01-14 12:47] VITALS: BP 141/99
--- NOTE | 2023-01-14 12:57 | NUR ---
Patient discharged to home in stable condition. Written and verbal after care instructions given. Patient verbalizes understanding of instruction.
== END 2023-01-14 12:59 | disposition home or self-care (01) ==
LOC: ER 10:54
DX: M54.50 Low back pain, unspecified (principal); I10 Essential (primary) hypertension; F17.200 Nicotine dependence, unspecified, uncomplicated; Z98.890 Other specified postprocedural states; Z79.899 Other long term (current) drug therapy
CPT/HCPCS: 99283; 96372; J1885